=== PATIENT | male | born 1995 | race Caucasian/White ===

== ENCOUNTER 2023-10-01 08:00 | Emergency (ER) | payer OTHER, SELFPAY ==
[2023-10-01 08:02] VITALS: BP 108/72; PULSE 92; RESP 18; TEMP 37.7; O2SAT 99; BMI 22.1
--- NOTE | 2023-10-01 08:17 | EX.ED.DYSGE1 ---
HPI History of Present Illness Chief Complaint: Nausea/Vomiting/Diarrhea Informant: patient, spouse/S.O. and EMS Narrative Narrative: 28-year-old male presenting to the emergency department chief complaint vomiting diarrhea and back pain. Patient states that back in April he was seen by primary care for low back pain. States he was given some steroids and he notes that the symptoms resolved. On Friday afternoon he began to have low back pain on both sides which she describes as sharp in nature. No radiation to the legs no bowel or bladder dysfunction no rashes no fevers. Then on Friday evening he began to have some diarrhea and yesterday began to have nausea and vomiting. He states that nothing seems to make the back pain better or worse. However he states that if he goes to bend over and stand back up he notices it more. Children have head cold at home. feels fine. He denies urinary symptoms. PFSH PFSH Home Medications cyclobenzaprine 10 mg tablet 10 mg PO TID PRN Muscle Spasm #15 TABLETS 10/01/23 [Rx Last Taken Unknown] ondansetron 4 mg disintegrating tablet 4 mg PO Q6H PRN PRN Nausea #10 tabs 10/01/23 [Rx Last Taken Unknown] Allergy/AdvReac Type Severity Reaction Status Date / Time No Known Allergies Allergy Verified 10/01/23 08:01 Social History Smoking Status: Never smoker [facility] ED Constitutional Constitutional ED: Reports chills, fever(s) and subjective; Denies weight loss Eyes Eyes: Denies change in vision or diplopia ENT ENT ED: Denies ear pain, rhinorrhea or sore throat Cardiovascular Cardiovascular: Denies chest pain, orthopnea, palpitations or racing heartbeat Respiratory/Chest Respiratory/Chest: Denies cough, dyspnea or orthopnea Gastrointestinal Gastrointestinal: Reports diarrhea, nausea and vomiting; Denies abdominal pain Genitourinary Genitourinary ED: Denies dysuria, hematuria or urinary frequency Musculoskeletal Musculoskeletal: Reports back pain; Denies arthralgias, myalgias or neck pain Integumentary Denies abscess or rash Neurologic Neurologic: Denies headache(s), paresthesias or weakness Psychiatric Psychiatric: Denies anxiety, depression, suicidal ideation or suicidal thoughts Endocrine Endocrinology: Denies polydipsia, polyphagia or polyuria Allergic/Immunologic Allergic/Immunologic ED: Denies mouth swelling, tongue swelling or urticaria EXAM Physical Exam Const Vital Signs: 10/01/23 08:02 10/01/23 10:00 Temperature 99.9 F H 97.6 F L Temperature Source Temporal Oral Pulse Rate 92 62 Respiratory Rate 18 15 Blood Pressure 108/72 108/76 Blood Pressure Mean 84 86 Pulse Ox 99 98 Oxygen Delivery Method Room Air Room Air Positive well nourished and well developed General Appearance ED: well developed HEENT Reports normocephalic, head/scalp atraumatic and moist mucous membranes Eyes PERRL and EOMs intact bilaterally Neck no lymphadenopathy, supple and no JVD Resp normal respiratory effort and clear to auscultation bilaterally Cardio regular rate, regular rhythm and no murmurs GI normal to inspection, nondistended, normoactive bowel sounds and non-tender Palpation: soft Back/Spine no CVA tenderness and normal ROM Extremity normal to inspection General Extremety ED: Negative for edema General Extremity: Negative for edema Neuro oriented x3 and CN's II-XII intact bilaterally Sensorium / Orientation: alert Motor Exam: strength 5/5 throughout Psych mental status grossly normal Mood & Affect: Negative for depressed or tearful Skin no rashes or lesions noted and no wounds MDM MDM MDM Narrative Medical decision making narrative: CBC BMP liver lipase and urinalysis normal. CT of the abdomen pelvis did not demonstrate any acute findings. Clinically thinking most likely has a viral gastroenteritis and his low back pain is most likely musculature in nature. I will write for some Zofran for the nausea vomiting Imodium as needed for diarrhea and Flexeril for the low back pain. Follow-up with primary care 3 to 5 days if not improving History & Record Review Discussion w/independent historian: Patient and Significant other Lab Data Attestation: I reviewed the patient's lab results. Labs: Laboratory Results - last 24 hr 10/01/23 10/01/23 07:22 08:53 WBC 4.8 RBC 5.08 Hgb 14.9 Hct 42.9 MCV 84.4 MCH 29.3 MCHC 34.7 RDW Std Deviation 36.3 RDW Coeff of Christoph 11.9 Plt Count 191 MPV 10.6 Immature Gran % (Auto) 0.400 Neut % (Auto) 62.6 Lymph % (Auto) 25.5 [place] % (Auto) 10.9 H Eos % (Auto) 0.0 Baso % (Auto) 0.6 Absolute Neuts (auto) 3.0 Absolute Lymphs (auto) 1.22 Nucleated RBC % 0 Sodium 135 L Potassium 3.3 L Chloride 103 Carbon Dioxide 24.0 Anion Gap 8 BUN 11 Creatinine 1.23 Estim Creat Clear Calc 86.82 Est GFR (MDRD) Af Amer 91 Est GFR (MDRD) Non-Af 75 BUN/Creatinine Ratio 8.9 L Glucose 101 Calcium 8.3 L Total Bilirubin 0.40 Direct Bilirubin 0.15 AST 24 ALT 24 Alkaline Phosphatase 72 Total Protein 7.7 Albumin 3.8 Globulin 3.9 Lipase 23 Urine Color Yellow Urine Clarity Clear Urine pH 6.0 Ur Specific [place] 1.020 Urine Protein 30 H Urine Glucose (UA) Normal Urine Ketones 5 H Urine Occult Blood Negative Urine Nitrite Negative Urine Bilirubin Negative Urine Urobilinogen Normal Ur Leukocyte Esterase Negative Urine RBC 0 SEEN Urine WBC 0 SEEN Ur Squamous Epith Cells 0 SEEN Urine Bacteria 0 SEEN Urine Mucus 0 SEEN Radiography Diagnostic Testing: Clinical Impression(s) from Imaging Studies Abdomen/Pelvis CT 10/01/23 09:25 IMPRESSION: Normal enhanced CT of the abdomen and pelvis. Electronically Signed: Srini Adames MD at 10:24 EDT , Discharge Plan Triage Chief Complaint: Nausea/Vomiting/Diarrhea ED Provider: Sterling Murry Dx/Rx/DC Orders Clinical Impression: Vomiting and diarrhea, Acute lumbar back pain Instructions: Self-Care for Low Back Pain, ED Gastroenteritis, Viral (Adult) Prescriptions: New cyclobenzaprine [cyclobenzaprine] 10 mg tablet 10 mg PO TID PRN (Reason: Muscle Spasm) Qty: 15 0RF ondansetron [ondansetron] 4 mg tablet,disintegrating 4 mg PO Q6H PRN PRN (Reason: Nausea) Qty: 10 0RF Primary Care Provider: Pop Espinal Referrals: Pop Espinal DO [Primary Care Provider] - 3-5 Days Disposition Disposition: Home, Self Care
[2023-10-01 08:32] LABS: Absolute Lymphocyte Count 1.22 X10^3/uL (0.83-4.51); Basophil# 0.03 X10^3/uL; Basophil% 0.6 % (0-1); Hematocrit 42.9 % (40-54); Hemoglobin 14.9 g/dL (13.0-16.5); Lymphocyte # 1.22 X10^3/ul (0.83-4.51); Lymphocyte % 25.5 % (19-41); Mean Corp Hgb Conc 34.7 g/dL (32-36); Mean Corpuscular Hgb 29.3 pg (27.0-32.0); Mean Corpuscular Volume 84.4 fL (80-94); Mean Platelet Vol. 10.6 fl (6.2-12.0); Monocyte# 0.52 X10^3/uL; Monocyte% 10.9 % (0-10); NRBC Flagged by Analyzer 0 % (0-5); Neutrophil # 2.99 X10^3/uL (2.7-7.7); Neutrophil % 62.6 % (47-70); Platelet Count 191 K/mm3 (150-450); RBC Distribution Width CV 11.9 % (11.6-14.6); RBC Distribution Width SD 36.3 fl (35.1-43.9); Red Blood Count 5.08 M/mm3 (4.6-6.2); White Blood Count 4.8 K/mm3 (4.4-11.0)
[2023-10-01 08:44] LABS: AST(SGOT) 24 U/L (15-37); Alanine Aminotransfer ALT/SGPT 24 U/L (16-61); Albumin, Serum 3.8 g/dL (3.2-5.0); Alkaline Phosphatase 72 U/L (45-117); Anion Gap 8 (5-15); BUN 11 mg/dL (7-18); BUN/Creat Ratio 8.9 RATIO (10-20); Bilirubin, Direct 0.15 mg/dL (0.00-0.30); Calcium,Total 8.3 mg/dL (8.5-10.1); Chloride 103 mmol/L (98-107); Creatinine, Serum 1.23 mg/dL (0.70-1.30); EST Glomerular Filtration Rate 75 mL/min (>60); Est Glom Filt Rate - Afr Amer 91 mL/min (>60); Estimated Creatinine Clearance 86.82 ml/min; Globulin 3.9 g/dL (2.2-4.2); Glucose 101 mg/dL (74-106); Lipase 23 U/L (13-75); Potassium 3.3 mmol/L (3.5-5.1); Protein, Total 7.7 g/dL (6.4-8.2); Sodium Level 135 mmol/L (136-145)
[2023-10-01] MEDS: 0.9% Normal Saline (1000mL) 1,000 ML 1000 ML IV (08:50)
[2023-10-01] MEDS: Ketorolac 30 MG/ML Syringe IV (08:50)
[2023-10-01] MEDS: Ondansetron 4 MG/2 ML Vial IV (08:50)
[2023-10-01 09:00] LABS: Bacteria 0 SEEN /hpf (None Seen); Mucous, Urine 0 SEEN /hpf (<or=2+); Red Blood Cells-Urine 0 SEEN /hpf (0-5); Squamous Epithelial Cells - UA 0 SEEN /hpf (0-5); White Blood Cells 0 SEEN /hpf (0-5)
[2023-10-01 09:08] LABS: Color, Urine Yellow (Yellow); Glucose, Dipstick Normal (Normal); Ketone-Dipstick 5 mg/dl (Negative); Leukocyte Esterase-Dipstick Negative /ul (Negative); Nitrite-Dipstick Negative (Negative); Occult Blood-Urine Negative /ul (Negative); Protein-Dipstick 30 mg/dl (Negative); Urine Bilirubin Dipstick Negative (Negative); Urine Clarity Clear (Clear); Urine Urobilinogen Normal (Normal)
--- NOTE | 2023-10-01 09:25 | CT_ITS ---
STUDY: CT ABDOMEN AND PELVIS WITH CONTRAST REASON FOR EXAM: Male, 28 years old. Diarrhea and abdominal pain. RADIATION DOSAGE (If Supplied By Facility): CTDIvol = ( 8.38 ) mGy, DLP = ( 365.47 ) mGycm TECHNIQUE: Transaxial images were obtained from the dome of the diaphragm to the symphysis pubis without oral contrast. IV 100mL Isovue-300 was administered. Sagittal and coronal images were reconstructed. Individualized dose optimization techniques were used for this CT. COMPARISON: None. FINDINGS: The visualized lung bases are unremarkable. The visualized portions of the heart are within normal limits. Normal liver. Normal gallbladder and extrahepatic biliary system. Normal spleen. Normal pancreas. Normal bilateral adrenal glands. Normal right kidney. Normal left kidney. Normal visualized stomach. Normal small intestine. Normal colon. The appendix is visualized and appears normal. Normal abdominal aorta. Normal inferior vena cava. Normal retroperitoneum. Mild degree of diffuse bladder wall thickening although the bladder is not completely filled at this time. Focal central prostatic calcification. Normal abdominal wall. Normal osseous structures. CT/Abdomen/Pelvis W IV Cont ONLY IMPRESSION: Normal enhanced CT of the abdomen and pelvis. Electronically Signed: Srini Adames MD at 10:24 EDT ,
[2023-10-01 10:00] VITALS: BP 108/76; PULSE 62; RESP 15; TEMP 36.4; O2SAT 98
[2023-10-01 10:58] VITALS: BP 112/73; PULSE 68; RESP 17; TEMP 36.6; O2SAT 100
== END 2023-10-01 10:59 | disposition home or self-care (01) ==
PROVIDERS: Emergency Provider Emergency Medicine; PCP Family Medicine; Visit Provider Emergency Medicine
DX: R11.2 Nausea with vomiting, unspecified (principal); R19.7 Diarrhea, unspecified; M54.50 Low back pain, unspecified
CPT/HCPCS: 74177; 80048; 80076; 81001; 83690; 85025; 96361; 96374; 96375; 99284; Q9967; A4216; J2405